=== PATIENT | male | born 1965 | race African-American/Black ===

== ENCOUNTER 2017-11-27 00:10 | Emergency (ER) | payer OTHER ==
[~2017-11-27] VITALS: Ht 185.4 cm; Wt 106.6 kg
[2017-11-27] MEDS ORDERED: PROMS25 WY RECTAL (00:15)
[2017-11-27 00:36] LABS: URINE BILIRUBIN NEGATIVE (Negative); URINE BLOOD NEGATIVE (Negative); URINE CLARITY CLEAR; URINE COLOR YELLOW; URINE GLUCOSE-RANDOM* NEGATIVE (Negative); URINE KETONES NEGATIVE (Negative); URINE LEUKOCYTES-REFLEX NEGATIVE (Negative); URINE NITRITE-REFLEX NEGATIVE (Negative); URINE PROTEIN (DIPSTICK) NEGATIVE (Negative); URINE SPECIFIC GRAVITY >= 1.030 (1.005-1.035); URINE UROBILINOGEN 0.2 E.U./dl (0.2-1.0)
[2017-11-27 00:44] LABS: AMP/METHAMP Negative (Negative); BARBITURATES Negative (Negative); BENZODIAZEPINES Negative (Negative); COCAINE Negative (Negative); METHADONE Negative (Negative); OPIATES Negative (Negative); PCP Negative (Negative)
[2017-11-27 00:46] LABS: ABSOLUTE NEUTROPHILS 3.8 thou/uL (1.4-8.2); BASOPHILS 0.9 % (0.0-2.0); EOSINOPHILS 2.3 % (0.0-3.0); HEMATOCRIT 31.6 % (42.0-52.0); HEMOGLOBIN 9.8 gm/dL (14.0-18.0); LYMPHOCYTES 20.4 % (24.0-44.0); MCH 23.1 pg (26.0-34.0); MCHC 31.1 g/dL (28.0-37.0); MCV 74.2 fL (80.0-100.0); MONOCYTES 5.7 % (1.0-8.0); PLATELET COUNT 294 thou/uL (150-400); POLYS 70.7 % (36.0-66.0); RBC 4.26 mil/uL (4.50-6.00); WBC 5.4 thou/uL (4.0-11.0)
[2017-11-27 00:53] LABS: ANION GAP 9 mmol/L (7-16); BUN 11 mg/dL (7-18); CALCIUM 9.3 mg/dL (8.5-10.1); CHLORIDE 109 mmol/L (98-107); CO2 26 mmol/L (21-32); CREATININE 1.1 mg/dL (0.7-1.3); GLUCOSE 106 mg/dL (74-106); POTASSIUM 3.7 mmol/L (3.5-5.1); SODIUM 144 mmol/L (136-145)
[2017-11-27 01:00] LABS: ALBUMIN 3.3 g/dL (3.4-5.0); DIRECT BILIRUBIN < 0.1 mg/dL (<0.1-0.3); LIPASE 86 U/L (73-393); SGOT 18 U/L (15-37); SGPT 20 U/L (30-65); TOTAL BILIRUBIN 0.3 mg/dL (<0.1-1.0); TOTAL PROTEIN 7.1 g/dL (6.4-8.2)
[2017-11-27 02:18] LABS: ANISOCYTOSIS 3+; HYPOCHROMASIA 1+; MICROCYTES 1+; POLYCHROMASIA OCCASIONAL
== END 2017-11-27 03:42 | disposition home or self-care (01) ==
LOC: ER 00:10
PROVIDERS: Emergency Medicine
DX: G89.29 Other chronic pain (principal); R10.9 Unspecified abdominal pain; R11.2 Nausea with vomiting, unspecified; Z85.46 Personal history of malignant neoplasm of prostate

== ENCOUNTER 2020-04-09 21:54 | Inpatient (IN) | payer OTHER ==
[~2020-04-09] VITALS: Ht 185.4 cm; Wt 117.3 kg
[~2020-04-09 21:54] MED LIST: PROMS25 WY RECTAL
[2020-04-09 22:00] VITALS: BP 115/86
[2020-04-10] LABS: ABSOLUTE NEUTROPHILS 5.4 thou/uL (1.4-8.2); BASOPHILS 0.4 % (0.0-2.0); EOSINOPHILS 0.4 % (0.0-3.0); HEMATOCRIT 51.8 % (42.0-52.0); HEMOGLOBIN 16.9 gm/dL (14.0-18.0); LYMPHOCYTES 11.3 % (24.0-44.0); MCH 27.8 pg (26.0-34.0); MCHC 32.7 g/dL (28.0-37.0); MONOCYTES 8.6 % (1.0-8.0); PLATELET COUNT 231 thou/uL (150-400); POLYS 79.3 % (36.0-66.0); WBC 6.8 thou/uL (4.0-11.0)
[2020-04-10] MEDS ORDERED: NEXIUM40 MG PO (00:02)
[2020-04-10] MEDS ORDERED: DORYX MPC120 MG PO (00:03)
[2020-04-10] MEDS ORDERED: REGLAN10 MG PO (00:04)
[2020-04-10 00:17] LABS: CALCIUM 10.2 mg/dL (8.5-10.1); CREATININE 2.2 mg/dL (0.7-1.3); POTASSIUM 3.3 mmol/L (3.5-5.1)
[2020-04-10 00:23] LABS: ALBUMIN 5.1 g/dL (3.4-5.0); TOTAL BILIRUBIN 2.1 mg/dL (0.2-1.0); TOTAL PROTEIN 8.9 g/dL (6.4-8.2)
[2020-04-10 01:12] LABS: URINE BILIRUBIN 2+ (Negative); URINE BLOOD 1+ (Negative); URINE CLARITY SL CLOUDY; URINE COLOR YELLOW; URINE GLUCOSE-RANDOM* NEGATIVE (Negative); URINE KETONES 2+ (Negative); URINE LEUKOCYTES-REFLEX NEGATIVE (Negative); URINE NITRITE-REFLEX NEGATIVE (Negative); URINE PROTEIN (DIPSTICK) 2+ (Negative); URINE SPECIFIC GRAVITY >= 1.030 (1.005-1.035)
[2020-04-10 01:29] LABS: BACTERIA-REFLEX 1-9 Few /HPF (None Seen); MUCUS >6 Heavy strn/LPF (None Seen); SQUAMOUS 0-3 Few /LPF (0-3); URINE RBC 3-10 Few /HPF (0-2); URINE WBC-REFLEX 0-5 Rare /HPF (0-5)
[2020-04-10 01:30] LABS: CRYSTALS None Seen /LPF (None Seen); HYALINE CASTS >10 Many /LPF (None Seen)
[2020-04-10 03:50] VITALS: BP 178/97
[2020-04-10 04:23] VITALS: BP 161/92
[2020-04-10 05:07] VITALS: BP 132/95
[2020-04-10 07:40] VITALS: BP 157/98
[2020-04-10 16:15] VITALS: BP 134/100
[2020-04-10 19:10] VITALS: BP 127/91
[2020-04-11 02:06] LABS: GLYCOHEMOGLOBIN (HGB A1C) 5.7 % (4.8-5.6)
[2020-04-11 03:53] VITALS: BP 126/83
[2020-04-11 06:47] LABS: HEMATOCRIT 43.8 % (42.0-52.0); MCHC 32.6 g/dL (28.0-37.0); MCV 85.8 fL (80.0-100.0); RBC 5.1 mil/uL (4.50-6.00); RDW 16.9 % (10.5-14.5)
[2020-04-11 06:56] LABS: HEMOGLOBIN 14.3 gm/dL (14.0-18.0)
[2020-04-11 07:04] LABS: CALCIUM 8.6 mg/dL (8.5-10.1); CREATININE 1.5 mg/dL (0.7-1.3); POTASSIUM 3.1 mmol/L (3.5-5.1)
[2020-04-11 07:15] VITALS: BP 127/77
[2020-04-11] MEDS ORDERED: NORVASC10 MG PO (14:37)
[2020-04-11 14:43] VITALS: BP 127/77
[2020-04-12 06:06] LABS: HAV IgM AB (ANTI-HAV IgM) Negative (Negative); HEPATITIS B SURFACE AG Negative (Negative); HEPATITIS C VIRUS AB 10.2 (0.0-0.9)
--- NOTE | 2020-04-14 18:06 | PATH ---
[facility] [address] [place] [address] PATHOLOGY RPT PROCEDURE Name: ARPAN KENNEDY A Room #: 443-P [facility] M.R.#: [id number] Admission: 04/10/20 Date of : 61 Discharge: 04/11/20 Report #: [id number] Path Case #: [id number] [facility] Accession Number: [id number] . 01 Material submitted: . stomach - ANTRAL BX . 01 Clinician provided ICD-10: N17.9 R11.2 . 01 Clinical history: . Nausea, cyclical vomiting. . 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 - Negative for intestinal metaplasia or atrophy. - Negative for Helicobacter pylori (properly controlled immunohistochemical stain performed). (IUV:pit 04/14/2020) QTP 04/14/2020 1404 Local . 02 Electronically signed: . Roxy Juarez MD, Pathologist NPI- [id number] . 01 Gross description: . Received in formalin labeled "CalderonArpan, antral BX rule out H. pylori" is a 0.6 x 0.4 x 0.1 cm aggregate of zelaya-brown soft tissue fragments. The specimen is submitted entirely in A1. ([facility] [place]; 04/11/2020) [facility] 04/11/2020 1828 Local . 02 Pathologist provided ICD-10: K29.50, K31.9 . 02 CPT . 687857, [id number] Specimen Comment: A courtesy copy of this report has been sent to [phone] Specimen Comment: [phone], Specimen Comment: Report sent to ,DR BELTRAN / DR VELEZ Performed at: [address] [id number] MD Baljeet Moncada MD Phone: [phone] Performed at: [address] [address] [place] [address] PATHOLOGY RPT PROCEDURE Name: ARPAN KENNEDY Room #: 443-P [facility] M.R.#: [id number] Admission: 04/10/20 Date of : 61 Discharge: 04/11/20 Report #: [id number] Path Case #: [id number] [address] [id number] MD Roxy Juarez MD Phone: [phone]
== END 2020-04-11 15:23 | disposition home or self-care (01) | DRG 392 ==
LOC: ER 21:54 → EROBS 04-10 03:47 → 4S 04-10 03:47
PROVIDERS: Emergency Medicine; Nurse Practitioner; Nurse Practitioner Family; ADMIT Hospitalist; ATTEND Hospitalist
PROC: 0DB68ZX Excision of Stomach, Via Natural or Artificial Opening Endoscopic, Diagnostic (ICD-10-PCS; principal; 2020-04-11)
DX: K20.8 Other esophagitis (principal); K92.0 Hematemesis; N17.9 Acute kidney failure, unspecified; R13.10 Dysphagia, unspecified; E87.6 Hypokalemia; Z20.828 Contact with and (suspected) exposure to other viral communicable diseases; F32.9 Major depressive disorder, single episode, unspecified; F41.9 Anxiety disorder, unspecified; I10 Essential (primary) hypertension; E86.0 Dehydration; R74.0 Nonspecific elevation of levels of transaminase and lactic acid dehydrogenase [LDH]; F43.10 Post-traumatic stress disorder, unspecified; K44.9 Diaphragmatic hernia without obstruction or gangrene; Z85.46 Personal history of malignant neoplasm of prostate; Z88.6 Allergy status to analgesic agent; Z88.8 Allergy status to other drugs, medicaments and biological substances; Z87.891 Personal history of nicotine dependence
CPT/HCPCS: 10102; 70005